=== PATIENT | female | born 1935 | race Caucasian/White ===

== ENCOUNTER 2022-02-20 08:42 | Outpatient (CLI) | payer MEDICARE, SELFPAY ==
[2022-02-20 17:56] LABS: Anion Gap 11 mmol/L (8-16); Blood Urea Nitrogen 24 mg/dL (7-17); Calcium 9.1 mg/dL (8.4-10.2); Carbon Dioxide 26 mmol/L (22-30); Chloride 106 mmol/L (98-107); Estimated Glomerular Filt Rate 43; Glucose 73 mg/dL (65-110); Potassium 4.8 mmol/L (3.4-5.0); Sodium 143 mmol/L (137-145)
[2022-02-20 18:01] LABS: NT Pro B Type Natriuretic Pept 49 pg/mL (5-100)
== END 2022-02-20 08:43 | disposition home or self-care (01) ==
PROVIDERS: PCP Family Medicine Sports Medicine; Visit Provider Internal Medicine Cardiovascular Disease
DX: R06.00 Dyspnea, unspecified (principal); R06.02 Shortness of breath
CPT/HCPCS: 36415; 80048; 83880